=== PATIENT | male | born 1955 | race Caucasian/White ===

== ENCOUNTER → 2016-10-10 | Outpatient (CLI) | payer MEDICARE ==
[~2016-10-10] MED LIST: ACET-2902 PO; AMLO2.5T PO; ASCO-360 PO; CARV3 PO; CARV6 PO; CEFT2PIG2 IVPB; DIAZ5 PO; DSS100 PO; FOLI1 PO; FURO40 PO; HEPA500035 SQ; HYDR25TA PO; LIDOCAINE HCL 4% 50 ML SOLUTION TP ONE; LISI-662 PO; MINE454C11 TP; MULT1TAB69 PO; NAPR500T6 PO; OMEP20 PO; PANT40I IV; PERCT PO; SILV45GE TP; SODIUM HYPOCHLORITE 0.25% [HALF STRENGTH] 473 ML SOLUTION TP ONE; TRAM50TA4 PO; VITAMIN D PO; ZOSY3375FZ IV; [UNRECOGNIZED DRUG - CODE] IRRIG
[2016-10-10 14:56] VITALS: BP 130/73
== END | disposition home or self-care (01) ==
LOC: HBOWC 12:10
PROVIDERS: ATTEND Emergency Medicine
DX: I87.2 Venous insufficiency (chronic) (peripheral) (principal); L97.821 Non-pressure chronic ulcer of other part of left lower leg limited to breakdown of skin; I89.0 Lymphedema, not elsewhere classified; I10 Essential (primary) hypertension; E66.01 Morbid (severe) obesity due to excess calories; B35.1 Tinea unguium; F10.10 Alcohol abuse, uncomplicated; Z87.891 Personal history of nicotine dependence; Z86.718 Personal history of other venous thrombosis and embolism
CPT/HCPCS: 97597; 97598

== ENCOUNTER → 2016-10-24 | Outpatient (CLI) | payer MEDICARE ==
[~2016-10-24] MED LIST changes: -LIDOCAINE HCL 4% 50 ML SOLUTION TP ONE; -SODIUM HYPOCHLORITE 0.25% [HALF STRENGTH] 473 ML SOLUTION TP ONE
[2016-10-24 13:49] VITALS: BP 134/62
== END | disposition home or self-care (01) ==
LOC: HBOWC 12:30
PROVIDERS: ATTEND Emergency Medicine
DX: I87.2 Venous insufficiency (chronic) (peripheral) (principal); L97.821 Non-pressure chronic ulcer of other part of left lower leg limited to breakdown of skin; I89.0 Lymphedema, not elsewhere classified; K70.30 Alcoholic cirrhosis of liver without ascites; I10 Essential (primary) hypertension; E66.01 Morbid (severe) obesity due to excess calories; B35.1 Tinea unguium; M21.42 Flat foot [pes planus] (acquired), left foot; M21.41 Flat foot [pes planus] (acquired), right foot; Z87.891 Personal history of nicotine dependence
CPT/HCPCS: 97597; 97598

== ENCOUNTER → 2016-10-27 | Outpatient (CLI) | payer MEDICARE ==
[~2016-10-27] VITALS: Ht 185.4 cm; Wt 154.0 kg
[2016-10-27 09:58] VITALS: BP 126/69
== END | disposition home or self-care (01) ==
LOC: SRCNTR 09:45
PROVIDERS: ATTEND Hospitalist
DX: I10 Essential (primary) hypertension (principal); I89.0 Lymphedema, not elsewhere classified; E66.01 Morbid (severe) obesity due to excess calories; K70.30 Alcoholic cirrhosis of liver without ascites; L97.929 Non-pressure chronic ulcer of unspecified part of left lower leg with unspecified severity; F10.21 Alcohol dependence, in remission
CPT/HCPCS: G0463

== ENCOUNTER → 2016-11-07 | Outpatient (CLI) | payer MEDICARE ==
[~2016-11-07] MED LIST changes: -AMLO2.5T PO; -CARV6 PO; -FURO40 PO; +LIDOCAINE HCL 4% 50 ML SOLUTION TP ONE; -LISI-662 PO; -NAPR500T6 PO; -OMEP20 PO; -VITAMIN D PO
[2016-11-07 14:12] VITALS: BP 111/68
== END | disposition home or self-care (01) ==
LOC: HBOWC 12:10
PROVIDERS: ATTEND Emergency Medicine
DX: I87.2 Venous insufficiency (chronic) (peripheral) (principal); L97.821 Non-pressure chronic ulcer of other part of left lower leg limited to breakdown of skin; I10 Essential (primary) hypertension; I89.0 Lymphedema, not elsewhere classified; E66.01 Morbid (severe) obesity due to excess calories; B35.1 Tinea unguium; M21.42 Flat foot [pes planus] (acquired), left foot; M21.41 Flat foot [pes planus] (acquired), right foot; Z86.718 Personal history of other venous thrombosis and embolism; F17.210 Nicotine dependence, cigarettes, uncomplicated; F10.10 Alcohol abuse, uncomplicated
CPT/HCPCS: 97597; 97598

== ENCOUNTER → 2016-11-21 | Outpatient (CLI) | payer MEDICARE ==
[~2016-11-21] MED LIST changes: -LIDOCAINE HCL 4% 50 ML SOLUTION TP ONE
[2016-11-21 14:12] VITALS: BP 139/60
== END | disposition home or self-care (01) ==
LOC: HBOWC 13:00
PROVIDERS: ATTEND Emergency Medicine
DX: I87.2 Venous insufficiency (chronic) (peripheral) (principal); L97.821 Non-pressure chronic ulcer of other part of left lower leg limited to breakdown of skin; I89.0 Lymphedema, not elsewhere classified; I10 Essential (primary) hypertension; E66.01 Morbid (severe) obesity due to excess calories; B35.1 Tinea unguium; Z86.718 Personal history of other venous thrombosis and embolism; Z87.891 Personal history of nicotine dependence; F10.10 Alcohol abuse, uncomplicated
CPT/HCPCS: 97597; 97598

== ENCOUNTER → 2016-12-05 | Outpatient (CLI) | payer MEDICARE ==
[~2016-12-05] MED LIST changes: -ACET-2902 PO; -CARV3 PO; -CEFT2PIG2 IVPB; -DIAZ5 PO; -DSS100 PO; -HEPA500035 SQ; -MINE454C11 TP; -PANT40I IV; -PERCT PO; -SILV45GE TP; -ZOSY3375FZ IV; -[UNRECOGNIZED DRUG - CODE] IRRIG
[2016-12-05 14:03] VITALS: BP 131/70
== END | disposition home or self-care (01) ==
LOC: HBOWC 12:47
PROVIDERS: ATTEND Emergency Medicine
DX: I87.2 Venous insufficiency (chronic) (peripheral) (principal); L97.821 Non-pressure chronic ulcer of other part of left lower leg limited to breakdown of skin; I89.0 Lymphedema, not elsewhere classified; I10 Essential (primary) hypertension; E66.01 Morbid (severe) obesity due to excess calories; Z86.718 Personal history of other venous thrombosis and embolism; B35.1 Tinea unguium; M21.42 Flat foot [pes planus] (acquired), left foot; M21.41 Flat foot [pes planus] (acquired), right foot; F17.210 Nicotine dependence, cigarettes, uncomplicated; F10.10 Alcohol abuse, uncomplicated
CPT/HCPCS: 97597; 97598

== ENCOUNTER 2016-12-08 01:16 | Emergency (ER) | payer MEDICARE ==
[~2016-12-08] VITALS: Ht 185.4 cm; Wt 136.0 kg
[2016-12-08] MEDS ORDERED: TraMADol HCL 50 MG TABLET PO ONE (02:30)
[2016-12-08 03:13] VITALS: BP 154/90
[2016-12-22] MEDS ORDERED: DIAZ5 PO (09:28)
[2017-01-05] MEDS ORDERED: PERCT PO (15:06)
[2017-01-14] MEDS ORDERED: ZOSY3375FZ IV (11:00)
== END 2016-12-08 03:21 | disposition home or self-care (01) ==
LOC: EMS 01:18
DX: M54.5 Low back pain (principal); I89.0 Lymphedema, not elsewhere classified; Z88.2 Allergy status to sulfonamides; F17.290 Nicotine dependence, other tobacco product, uncomplicated
CPT/HCPCS: 99283

== ENCOUNTER → 2016-12-22 | Outpatient (CLI) | payer MEDICARE ==
[~2016-12-22] MED LIST changes: +ACET-2902 PO; +ACET-784 PO; +ASCO500 PO; +CARV3 PO; +CEFT2PIG2 IVPB; +DIAZ5 PO; +DSS100 PO; +HEPA500017 SQ; +HEPA500035 SQ; +MINE454C11 TP; +MULT-248 PO; +PANT40I IV; +PANT40TA25 PO; +PERCT PO; +SILV45GE TP; +ZOSY3375FZ IV; +[UNRECOGNIZED DRUG - CODE] IRRIG; +[UNRECOGNIZED DRUG - CODE] IV
[2016-12-22 12:58] LABS: APPEARANCE,URINE CLEAR (CLEAR); GLUCOSE, URINE (UA) NEGATIVE (NEGATIVE); KETONES,URINE 15 mg/dL (NEGATIVE); LEUKOCYTE ESTERASE ,URINE SMALL (NEGATIVE); OCCULT BLOOD,URINE TRACE (NEGATIVE); PH,URINE 6.5 (5.0-8.0); PROTEIN,URINE POS 1+ (NEGATIVE)
[2016-12-22 13:09] LABS: ADD UA MICROSCOPIC YES
[2016-12-22 13:12] LABS: RBC,URINE 0-2 /HPF (0-2); SQUAMOUS EPITHELIAL CELL,UR Few /LPF (None Seen); WBC,URINE 0-2 /HPF (0-5)
== END | disposition home or self-care (01) ==
LOC: LABPV 11:46
PROVIDERS: ATTEND Hospitalist
DX: N30.90 Cystitis, unspecified without hematuria (principal)
CPT/HCPCS: 87086

== ENCOUNTER → 2016-12-22 | Outpatient (CLI) | payer MEDICARE ==
[~2016-12-22] MED LIST changes: -ACET-2902 PO; -ACET-784 PO; -ASCO500 PO; -CARV3 PO; -CEFT2PIG2 IVPB; -DSS100 PO; -HEPA500017 SQ; -HEPA500035 SQ; +LIDOCAINE HCL 4% 50 ML SOLUTION TP ONE; -MINE454C11 TP; -MULT-248 PO; -PANT40I IV; -PANT40TA25 PO; -PERCT PO; -SILV45GE TP; -ZOSY3375FZ IV; -[UNRECOGNIZED DRUG - CODE] IRRIG; -[UNRECOGNIZED DRUG - CODE] IV
[2016-12-22 14:01] VITALS: BP 132/73
== END | disposition home or self-care (01) ==
LOC: HBOWC 11:55
PROVIDERS: ATTEND Emergency Medicine
DX: I87.2 Venous insufficiency (chronic) (peripheral) (principal); L97.821 Non-pressure chronic ulcer of other part of left lower leg limited to breakdown of skin; I89.0 Lymphedema, not elsewhere classified; I10 Essential (primary) hypertension; E66.01 Morbid (severe) obesity due to excess calories; B35.1 Tinea unguium; M21.42 Flat foot [pes planus] (acquired), left foot; M21.41 Flat foot [pes planus] (acquired), right foot; Z86.718 Personal history of other venous thrombosis and embolism; Z87.891 Personal history of nicotine dependence; F10.10 Alcohol abuse, uncomplicated
CPT/HCPCS: 97597; 97598

== ENCOUNTER → 2016-12-22 | Outpatient (CLI) | payer MEDICARE ==
[~2016-12-22] VITALS: Ht 185.4 cm; Wt 150.0 kg
[~2016-12-22] MED LIST changes: +ACET-2902 PO; +ACET-784 PO; +ASCO500 PO; +CARV3 PO; +CEFT2PIG2 IVPB; +DSS100 PO; +HEPA500017 SQ; +HEPA500035 SQ; -LIDOCAINE HCL 4% 50 ML SOLUTION TP ONE; +MINE454C11 TP; +MULT-248 PO; +PANT40I IV; +PANT40TA25 PO; +PERCT PO; +SILV45GE TP; +ZOSY3375FZ IV; +[UNRECOGNIZED DRUG - CODE] IRRIG; +[UNRECOGNIZED DRUG - CODE] IV
[2016-12-22 09:20] VITALS: BP 142/75
== END | disposition home or self-care (01) ==
LOC: SRCNTR 09:19
PROVIDERS: ATTEND Hospitalist
DX: I87.2 Venous insufficiency (chronic) (peripheral) (principal); L97.821 Non-pressure chronic ulcer of other part of left lower leg limited to breakdown of skin; B35.1 Tinea unguium; M54.5 Low back pain; E66.01 Morbid (severe) obesity due to excess calories; K74.60 Unspecified cirrhosis of liver; I89.0 Lymphedema, not elsewhere classified; Z87.891 Personal history of nicotine dependence; Z86.59 Personal history of other mental and behavioral disorders
CPT/HCPCS: G0463

== ENCOUNTER 2016-12-26 16:46 | Inpatient (IN) | payer MEDICARE ==
[~2016-12-26] VITALS: Ht 185.4 cm; Wt 153.5 kg
[~2016-12-26 16:46] MED LIST changes: -ACET-2902 PO; -ACET-784 PO; -ASCO500 PO; -CARV3 PO; -CEFT2PIG2 IVPB; -DIAZ5 PO; -DSS100 PO; -HEPA500017 SQ; -HEPA500035 SQ; -HYDR25TA PO; -MINE454C11 TP; -MULT-248 PO; -PANT40I IV; -PANT40TA25 PO; -PERCT PO; -SILV45GE TP; -ZOSY3375FZ IV; -[UNRECOGNIZED DRUG - CODE] IRRIG; -[UNRECOGNIZED DRUG - CODE] IV
[2016-12-26 20:15] LABS: HEMATOCRIT 35.5 % (41-53); HEMOGLOBIN 11.5 g/dL (13.5-17.5); MEAN CORPUSCULAR HEMOGLOBIN 28.6 pg (26.0-34.0); MEAN CORPUSCULAR HGB CONC 32.5 G/dL (31.0-37.0); MEAN CORPUSCULAR VOLUME 88 fL (80-100); PLATELET COUNT (AUTO) 135 K/uL (150-450); RED BLOOD CELL COUNT(AUTO) 4.04 MIL/uL (4.50-5.90); RED CELL DISTRIBUTION WIDTH 19.8 % (11.5-14.5)
[2016-12-26 20:25] LABS: ANION GAP 9 mmol/L (8-16); CALCIUM, TOTAL 8.6 mg/dL (8.8-10.5); CARBON DIOXIDE 28 mmol/L (22-29); CHLORIDE 98 mmol/L (98-107); CREATININE 0.86 mg/dL (0.60-1.30); GLOMERULAR FILTR. RATE CALC > 60 mL/min (>60); POTASSIUM 4.2 mmol/L (3.5-5.1); SODIUM SERUM 135 mmol/L (136-145); UREA NITROGEN, BLOOD 13 mg/dL (7-18)
[2016-12-26] MEDS ORDERED: DIGOXIN 250 MCG/ML 2 ML AMP IVP ONE (20:30)
[2016-12-26 20:32] LABS: ALANINE AMINOTRANSFERASE 23 U/L (12-78); ALBUMIN 2.6 g/dL (3.4-5.0); ASPARTATE AMINOTRANSFERASE 93 U/L (15-37); BILIRUBIN,TOTAL 2.4 mg/dL (0.1-1.0); TOTAL PROTEIN, SERUM 8.8 g/dL (6.4-8.2)
[2016-12-26 20:50] LABS: BAND NEUTROPHILS % (MANUAL) 32 % (1-5); BASOPHILS % (MANUAL) 1 % (0-2); EOSINOPHILS % (MANUAL) 2 % (1-6); LYMPHOCYTES % (MANUAL) 8 % (22-44); TOTAL CELLS COUNTED 100
[2016-12-26 20:51] LABS: RBC MORPHOLOGY COMMENT ABNORMAL RBC MORPH
[2016-12-26 20:56] LABS: TROPONIN I 0.02 ng/mL (0.00-0.05)
[2016-12-26 21:10] LABS: ADD UA MICROSCOPIC YES; APPEARANCE,URINE CLEAR (CLEAR); GLUCOSE, URINE (UA) NEGATIVE (NEGATIVE); KETONES,URINE 15 mg/dL (NEGATIVE); LEUKOCYTE ESTERASE ,URINE SMALL (NEGATIVE); OCCULT BLOOD,URINE NEGATIVE (NEGATIVE); PROTEIN,URINE POS 1+ (NEGATIVE)
[2016-12-26] MEDS ORDERED: DILTIAZEM HCL 5 MG/ML 5 ML VIAL IVP ONE (21:30)
[2016-12-26 22:15] LABS: WBC,URINE 0-2 /HPF (0-5)
[2016-12-26] MEDS ORDERED: CefTRIAXone 1 GM/DEXTROSE 50 ML IV ONE (22:15)
[2016-12-26 22:16] LABS: SQUAMOUS EPITHELIAL CELL,UR Few /LPF (None Seen)
[2016-12-26] MEDS ORDERED: SODIUM CHLORIDE 0.9% 250 ML IV ONE (23:39)
[2016-12-26] MEDS ORDERED: OxyCODONE HCL/ACETAMINOPHEN 5-325 MG TABLET PO PRN ×2 (23:45)
[2016-12-26 23:48] VITALS: BP 133/92
[2016-12-27] MEDS ORDERED: TraMADol HCL 50 MG TABLET PO PRN (00:15)
[2016-12-27] MEDS: DOCUSATE SODIUM 100 MG CAPSULE PO SCH ×3 (00:30→20:15)
[2016-12-27] MEDS ORDERED: ACETAMINOPHEN 325 MG TABLET PO PRN (00:30)
[2016-12-27] MEDS ORDERED: ONDANSETRON HCL 4 MG/2 ML VIAL IVP PRN (00:30)
[2016-12-27] MEDS ORDERED: MAGNESIUM HYDROXIDE SUSPENSION 30 ML UDCUP PO PRN (00:30)
[2016-12-27] MEDS ORDERED: 0.9% SODIUM CHLORIDE 10 ML SYRINGE IVP PRN (00:30)
[2016-12-27] MEDS: ASCORBIC ACID 500 MG TABLET PO SCH ×3 (01:13→20:14)
[2016-12-27 05:59] VITALS: BP 123/77
[2016-12-27 07:23] VITALS: BP 134/86
[2016-12-27] MEDS: HEPARIN SODIUM,PORCINE 5,000 UNITS/ML VIAL SQ SCH ×3 (08:57→20:14)
[2016-12-27] MEDS: FOLIC ACID 1 MG TABLET PO SCH (08:57)
[2016-12-27] MEDS: PANTOPRAZOLE SODIUM 40 MG/VIAL IVP SCH (08:57)
[2016-12-27] MEDS: MULTIVITAMINS WITH MINERALS, THERAPEUTIC TABLET PO SCH (08:57)
[2016-12-27 11:15] VITALS: BP 127/69
[2016-12-27] MEDS: OxyCODONE HCL/ACETAMINOPHEN 5-325 MG TABLET PO PRN ×2 (11:58→20:15)
[2016-12-27 14:47] VITALS: BP 121/82
[2016-12-27] MEDS: CARVEDILOL 3.125 MG TABLET PO SCH ×2 (16:29→20:14)
[2016-12-27 20:13] VITALS: BP 104/75
[2016-12-27] MEDS ORDERED: CARVEDILOL 3.125 MG TABLET PO SCH (21:00)
[2016-12-28 00:06] VITALS: BP 125/80
[2016-12-28] MEDS: OxyCODONE HCL/ACETAMINOPHEN 5-325 MG TABLET PO PRN ×3 (00:16→07:48)
[2016-12-28 04:39] VITALS: BP 100/64
[2016-12-28 07:09] VITALS: BP 115/64
[2016-12-28 07:15] LABS: BASOPHILS % (AUTO) 0.4 % (0.0-2.0); EOSINOPHILS % (AUTO) 3.6 % (1.0-6.0); HEMOGLOBIN 11.2 g/dL (13.5-17.5); LYMPHOCYTES # (AUTO) 0.6 K/uL (1.0-4.8); LYMPHOCYTES % (AUTO) 7.1 % (22.0-44.0); MEAN CORPUSCULAR HEMOGLOBIN 28.5 pg (26.0-34.0); MEAN CORPUSCULAR HGB CONC 31.9 G/dL (31.0-37.0); MEAN CORPUSCULAR VOLUME 89 fL (80-100); MONOCYTES # (AUTO) 0.5 K/uL (0.1-1.0); MONOCYTES % (AUTO) 5.3 % (2.0-9.0); NEUTROPHILS # (AUTO) 7.5 K/uL (1.8-7.7); NEUTROPHILS % (AUTO) 83.6 % (40.0-70.0); PLATELET COUNT (AUTO) 143 K/uL (150-450); RED BLOOD CELL COUNT(AUTO) 3.91 MIL/uL (4.50-5.90); RED CELL DISTRIBUTION WIDTH 19.7 % (11.5-14.5); WHITE BLOOD COUNT (AUTO) 8.9 K/uL (4.5-11.0)
[2016-12-28 07:33] LABS: ANION GAP 7 mmol/L (8-16); CARBON DIOXIDE 29 mmol/L (22-29); CHLORIDE 98 mmol/L (98-107); GLOMERULAR FILTR. RATE CALC > 60 mL/min (>60); POTASSIUM 3.8 mmol/L (3.5-5.1); SODIUM SERUM 134 mmol/L (136-145); UREA NITROGEN, BLOOD 13 mg/dL (7-18)
[2016-12-28] MEDS: HEPARIN SODIUM,PORCINE 5,000 UNITS/ML VIAL SQ SCH ×3 (08:42→20:40)
[2016-12-28] MEDS: ASCORBIC ACID 500 MG TABLET PO SCH ×2 (08:42→20:41)
[2016-12-28] MEDS: PANTOPRAZOLE SODIUM 40 MG/VIAL IVP SCH (08:42)
[2016-12-28] MEDS: MULTIVITAMINS WITH MINERALS, THERAPEUTIC TABLET PO SCH (08:42)
[2016-12-28] MEDS: FOLIC ACID 1 MG TABLET PO SCH (08:42)
[2016-12-28] MEDS: CARVEDILOL 3.125 MG TABLET PO SCH ×2 (08:42→20:51)
[2016-12-28] MEDS: DOCUSATE SODIUM 100 MG CAPSULE PO SCH ×2 (08:43→20:50)
[2016-12-28 10:29] LABS: RBC MORPHOLOGY COMMENT ABNORMAL RBC MORPH
[2016-12-28 11:40] VITALS: BP 102/56
[2016-12-28 15:24] VITALS: BP 111/69
[2016-12-28 20:20] VITALS: BP 119/77
[2016-12-29] VITALS (7 sets, daily range): BP systolic 107–139; BP diastolic 66–73
[2016-12-29] MEDS ORDERED: SODIUM CL IRRIG SOLN BOTTLE 250 ML IRRIG ONE (04:47)
[2016-12-29] MEDS: PANTOPRAZOLE SODIUM 40 MG/VIAL IVP SCH (08:23)
[2016-12-29] MEDS: DOCUSATE SODIUM 100 MG CAPSULE PO SCH ×2 (08:23→20:04)
[2016-12-29] MEDS: MULTIVITAMINS WITH MINERALS, THERAPEUTIC TABLET PO SCH (08:24)
[2016-12-29] MEDS: ASCORBIC ACID 500 MG TABLET PO SCH ×2 (08:24→20:00)
[2016-12-29] MEDS: FOLIC ACID 1 MG TABLET PO SCH (08:24)
[2016-12-29] MEDS: CARVEDILOL 3.125 MG TABLET PO SCH ×2 (08:24→20:00)
[2016-12-29] MEDS: HEPARIN SODIUM,PORCINE 5,000 UNITS/ML VIAL SQ SCH ×3 (08:24→20:00)
[2016-12-29] MEDS: OxyCODONE HCL/ACETAMINOPHEN 5-325 MG TABLET PO PRN ×2 (08:59→20:01)
[2016-12-29] MEDS: PIPERACILLIN/TAZO 3.375 GM/D5W 50 ML IV SCH ×2 (16:19→21:17)
[2016-12-30 02:13] VITALS: BP 101/59
[2016-12-30] MEDS: OxyCODONE HCL/ACETAMINOPHEN 5-325 MG TABLET PO PRN ×3 (02:14→20:07)
[2016-12-30] MEDS: PIPERACILLIN/TAZO 3.375 GM/D5W 50 ML IV SCH ×4 (03:51→21:53)
[2016-12-30 04:23] VITALS: BP 101/52
[2016-12-30 07:40] VITALS: BP 117/61
[2016-12-30] MEDS: SILVER 45 ML GEL TP SCH (08:43)
[2016-12-30] MEDS: CARVEDILOL 3.125 MG TABLET PO SCH ×2 (08:43→20:07)
[2016-12-30] MEDS: MULTIVITAMINS WITH MINERALS, THERAPEUTIC TABLET PO SCH (08:43)
[2016-12-30] MEDS: MINERAL OIL/PETROLATUM 120 GM CREAM TP SCH (08:43)
[2016-12-30] MEDS: ASCORBIC ACID 500 MG TABLET PO SCH ×2 (08:43→20:07)
[2016-12-30] MEDS: FOLIC ACID 1 MG TABLET PO SCH (08:43)
[2016-12-30] MEDS: PANTOPRAZOLE SODIUM 40 MG/VIAL IVP SCH (08:44)
[2016-12-30] MEDS: DOCUSATE SODIUM 100 MG CAPSULE PO SCH ×2 (08:44→20:09)
[2016-12-30] MEDS: HEPARIN SODIUM,PORCINE 5,000 UNITS/ML VIAL SQ SCH ×3 (08:45→20:07)
[2016-12-30 11:37] VITALS: BP 95/59
[2016-12-30] MEDS: ACETIC ACID 0.25% 1000 ML IRRIGATION SOLUTION IRRIG SCH (13:20)
[2016-12-30 17:55] VITALS: BP 109/62
[2016-12-30 20:02] VITALS: BP 106/60
[2016-12-31] VITALS (7 sets, daily range): BP systolic 101–136; BP diastolic 59–72
[2016-12-31] MEDS ORDERED: SODIUM CHLORIDE 0.9% 500 ML IV ONE (04:41)
[2016-12-31] MEDS: PIPERACILLIN/TAZO 3.375 GM/D5W 50 ML IV SCH ×4 (04:46→21:31)
[2016-12-31] MEDS: ASCORBIC ACID 500 MG TABLET PO SCH ×2 (09:28→20:02)
[2016-12-31] MEDS: MULTIVITAMINS WITH MINERALS, THERAPEUTIC TABLET PO SCH (09:28)
[2016-12-31] MEDS: HEPARIN SODIUM,PORCINE 5,000 UNITS/ML VIAL SQ SCH ×3 (09:28→20:02)
[2016-12-31] MEDS: OxyCODONE HCL/ACETAMINOPHEN 5-325 MG TABLET PO PRN ×2 (09:28→20:02)
[2016-12-31] MEDS: DOCUSATE SODIUM 100 MG CAPSULE PO SCH ×2 (09:29→20:02)
[2016-12-31] MEDS: FOLIC ACID 1 MG TABLET PO SCH (09:29)
[2016-12-31] MEDS: MINERAL OIL/PETROLATUM 120 GM CREAM TP SCH (09:29)
[2016-12-31] MEDS: SILVER 45 ML GEL TP SCH (09:29)
[2016-12-31] MEDS: CARVEDILOL 3.125 MG TABLET PO SCH ×2 (09:29→20:02)
[2016-12-31] MEDS: ACETIC ACID 0.25% 1000 ML IRRIGATION SOLUTION IRRIG SCH (09:29)
[2016-12-31] MEDS: PANTOPRAZOLE SODIUM 40 MG/VIAL IVP SCH (09:29)
[2017-01-01] MEDS: PIPERACILLIN/TAZO 3.375 GM/D5W 50 ML IV SCH (03:53)
[2017-01-01 05:03] VITALS: BP 103/68
[2017-01-01] MEDS: OxyCODONE HCL/ACETAMINOPHEN 5-325 MG TABLET PO PRN ×2 (05:06→14:07)
[2017-01-01] MEDS: CARVEDILOL 3.125 MG TABLET PO SCH (09:00)
[2017-01-01] MEDS ORDERED: CefTRIAXone SODIUM 2 GM in DEXTROSE 5%-WATER 50 ML IV SCH (09:00)
[2017-01-01] MEDS: SILVER 45 ML GEL TP SCH (10:15)
[2017-01-01] MEDS: ACETIC ACID 0.25% 1000 ML IRRIGATION SOLUTION IRRIG SCH (10:15)
[2017-01-01] MEDS: MINERAL OIL/PETROLATUM 120 GM CREAM TP SCH (10:15)
[2017-01-01 10:16] VITALS: BP 99/56
[2017-01-01] MEDS: MULTIVITAMINS WITH MINERALS, THERAPEUTIC TABLET PO SCH (10:16)
[2017-01-01] MEDS: FOLIC ACID 1 MG TABLET PO SCH (10:17)
[2017-01-01] MEDS: ASCORBIC ACID 500 MG TABLET PO SCH (10:17)
[2017-01-01] MEDS: DOCUSATE SODIUM 100 MG CAPSULE PO SCH (10:17)
[2017-01-01] MEDS: HEPARIN SODIUM,PORCINE 5,000 UNITS/ML VIAL SQ SCH ×2 (10:18→16:31)
[2017-01-01] MEDS: PANTOPRAZOLE SODIUM 40 MG/VIAL IVP SCH (10:18)
[2017-01-01 11:28] VITALS: BP 100/59
[2017-01-01 15:07] VITALS: BP 103/61
[2017-01-01] MEDS ORDERED: [UNRECOGNIZED DRUG - CODE] IRRIG (18:23)
[2017-01-01] MEDS ORDERED: CARV3 PO (18:23)
[2017-01-01] MEDS ORDERED: CEFT2PIG2 IVPB (18:26)
[2017-01-01] MEDS ORDERED: DSS100 PO (18:30)
[2017-01-01] MEDS ORDERED: HEPA500035 SQ (19:01)
[2017-01-01] MEDS ORDERED: MINE454C11 TP (19:02)
[2017-01-01] MEDS ORDERED: PANT40I IV (19:03)
[2017-01-01] MEDS ORDERED: SILV45GE TP (19:05)
[2017-01-01] MEDS ORDERED: ACET-2902 PO (19:07)
[2017-01-01 19:27] VITALS: BP 96/62
[2017-01-01 20:40] VITALS: BP 133/80
[2017-01-05] MEDS ORDERED: PERCT PO (15:06)
[2017-01-14] MEDS ORDERED: ZOSY3375FZ IV (11:00)
[2017-03-12] MEDS ORDERED: CARV3 PO (14:33)
[2017-03-12] MEDS ORDERED: MULT-248 PO (14:33)
[2017-03-12] MEDS ORDERED: FOLI1 PO (14:33)
[2017-03-12] MEDS ORDERED: PERCT PO (14:33)
[2017-03-12] MEDS ORDERED: ACET-784 PO (14:33)
[2017-03-12] MEDS ORDERED: TRAM50TA4 PO (14:33)
[2017-03-12] MEDS ORDERED: ASCO500 PO (14:33)
[2017-03-12] MEDS ORDERED: HEPA500017 SQ (14:33)
[2017-03-12] MEDS ORDERED: PANT40TA25 PO (14:33)
[2017-03-12] MEDS ORDERED: [UNRECOGNIZED DRUG - CODE] IV (16:01)
== END 2017-01-01 20:45 | DRG 871 ==
LOC: EMS 16:51 → 5S 20:00
PROVIDERS: ADMIT Internal Medicine; ATTEND Internal Medicine
DX: A41.9 Sepsis, unspecified organism (principal); E43 Unspecified severe protein-calorie malnutrition; L03.116 Cellulitis of left lower limb; L97.929 Non-pressure chronic ulcer of unspecified part of left lower leg with unspecified severity; I48.91 Unspecified atrial fibrillation; K70.30 Alcoholic cirrhosis of liver without ascites; S42.001A Fracture of unspecified part of right clavicle, initial encounter for closed fracture; D64.9 Anemia, unspecified; R29.6 Repeated falls; I89.0 Lymphedema, not elsewhere classified; I87.2 Venous insufficiency (chronic) (peripheral); I73.9 Peripheral vascular disease, unspecified; F17.210 Nicotine dependence, cigarettes, uncomplicated; Z91.81 History of falling; Z98.890 Other specified postprocedural states; Z88.2 Allergy status to sulfonamides; Z79.1 Long term (current) use of non-steroidal anti-inflammatories (NSAID); Z79.899 Other long term (current) drug therapy
CPT/HCPCS: 76705; 87070; 87205; 93005; 93306; 93925; 93970; 96374; 96375; 97116; 97162; 97530; 99285; C9113; G0480; J0696; J1160; J1644; J2543; J3490; J7040; J7050; J7060

== ENCOUNTER → 2017-01-05 | Outpatient (CLI) | payer MEDICARE ==
[~2017-01-05] MED LIST changes: +ACET-2902 PO; +ACET-784 PO; +ASCO500 PO; +CARV3 PO; +CEFT2PIG2 IVPB; +DSS100 PO; +HEPA500017 SQ; +HEPA500035 SQ; +MINE454C11 TP; +MULT-248 PO; +PANT40I IV; +PANT40TA25 PO; +PERCT PO; +SILV45GE TP; +ZOSY3375FZ IV; +[UNRECOGNIZED DRUG - CODE] IRRIG; +[UNRECOGNIZED DRUG - CODE] IV
[2017-01-05 13:57] VITALS: BP 130/68
== END | disposition home or self-care (01) ==
LOC: HBOWC 12:37
PROVIDERS: ATTEND Emergency Medicine
DX: I87.2 Venous insufficiency (chronic) (peripheral) (principal); L97.821 Non-pressure chronic ulcer of other part of left lower leg limited to breakdown of skin; I10 Essential (primary) hypertension; I89.0 Lymphedema, not elsewhere classified; E66.01 Morbid (severe) obesity due to excess calories; M21.42 Flat foot [pes planus] (acquired), left foot; M21.41 Flat foot [pes planus] (acquired), right foot; Z86.718 Personal history of other venous thrombosis and embolism; B35.1 Tinea unguium; F17.210 Nicotine dependence, cigarettes, uncomplicated; F10.10 Alcohol abuse, uncomplicated
CPT/HCPCS: 97597; 97598

== ENCOUNTER → 2017-01-12 | Outpatient (CLI) | payer MEDICARE ==
[~2017-01-12] MED LIST changes: -ACET-2902 PO; -DSS100 PO; +LIDOCAINE HCL 4% 50 ML SOLUTION TP ONE; -PANT40I IV; -SILV45GE TP
[2017-01-12 14:05] VITALS: BP 120/55
== END | disposition home or self-care (01) ==
LOC: HBOWC 13:31
PROVIDERS: ATTEND Emergency Medicine
DX: I87.2 Venous insufficiency (chronic) (peripheral) (principal); L97.822 Non-pressure chronic ulcer of other part of left lower leg with fat layer exposed; I89.0 Lymphedema, not elsewhere classified; I10 Essential (primary) hypertension; M21.42 Flat foot [pes planus] (acquired), left foot; M21.41 Flat foot [pes planus] (acquired), right foot; E66.01 Morbid (severe) obesity due to excess calories; Z86.718 Personal history of other venous thrombosis and embolism; B35.1 Tinea unguium; I48.91 Unspecified atrial fibrillation; E43 Unspecified severe protein-calorie malnutrition; F17.210 Nicotine dependence, cigarettes, uncomplicated
CPT/HCPCS: 87070; 87205; 97597; 97598

== ENCOUNTER → 2017-01-27 | Outpatient (CLI) | payer MEDICARE ==
[~2017-01-27] MED LIST changes: -ACET-784 PO; -ASCO500 PO; -CEFT2PIG2 IVPB; -HEPA500017 SQ; -LIDOCAINE HCL 4% 50 ML SOLUTION TP ONE; -MULT-248 PO; -PANT40TA25 PO; -[UNRECOGNIZED DRUG - CODE] IV
[2017-01-27 14:51] VITALS: BP 111/64
== END | disposition home or self-care (01) ==
LOC: HBOWC 12:57
PROVIDERS: ATTEND Emergency Medicine
DX: I87.2 Venous insufficiency (chronic) (peripheral) (principal); L97.822 Non-pressure chronic ulcer of other part of left lower leg with fat layer exposed; I89.0 Lymphedema, not elsewhere classified; E66.01 Morbid (severe) obesity due to excess calories; B35.1 Tinea unguium; I48.91 Unspecified atrial fibrillation; E43 Unspecified severe protein-calorie malnutrition; F10.10 Alcohol abuse, uncomplicated; K70.30 Alcoholic cirrhosis of liver without ascites; I73.9 Peripheral vascular disease, unspecified; I10 Essential (primary) hypertension; F17.210 Nicotine dependence, cigarettes, uncomplicated; Z86.718 Personal history of other venous thrombosis and embolism
CPT/HCPCS: 87070; 87205; 97597; 97598

== ENCOUNTER → 2017-02-12 | Outpatient (CLI) | payer MEDICARE ==
[~2017-02-12] MED LIST changes: +LIDOCAINE HCL 4% 50 ML SOLUTION TP ONE
[2017-02-12 13:57] VITALS: BP 117/52
== END | disposition home or self-care (01) ==
LOC: HBOWC 13:26
PROVIDERS: ATTEND Emergency Medicine
DX: I87.2 Venous insufficiency (chronic) (peripheral) (principal); L97.822 Non-pressure chronic ulcer of other part of left lower leg with fat layer exposed; I89.0 Lymphedema, not elsewhere classified; E66.01 Morbid (severe) obesity due to excess calories; E43 Unspecified severe protein-calorie malnutrition; I10 Essential (primary) hypertension; I73.9 Peripheral vascular disease, unspecified; Z86.718 Personal history of other venous thrombosis and embolism; F17.210 Nicotine dependence, cigarettes, uncomplicated; F10.10 Alcohol abuse, uncomplicated
CPT/HCPCS: 87070; 87205; 97597; 97598

== ENCOUNTER 2017-02-26 16:52 | Emergency (ER) | payer MEDICARE ==
[~2017-02-26] VITALS: Ht 185.4 cm; Wt 109.0 kg
[~2017-02-26 16:52] MED LIST changes: -LIDOCAINE HCL 4% 50 ML SOLUTION TP ONE
[2017-02-26] MEDS ORDERED: BACITRACIN 0.9 GM PACKET OINTMENT TP ONE (18:30)
[2017-02-26 19:06] LABS: ANION GAP 10 mmol/L (8-16); CALCIUM, TOTAL 8.7 mg/dL (8.8-10.5); CARBON DIOXIDE 24 mmol/L (22-29); CHLORIDE 105 mmol/L (98-107); CREATININE 0.79 mg/dL (0.60-1.30); GLOMERULAR FILTR. RATE CALC > 60 mL/min (>60); POTASSIUM 4.2 mmol/L (3.5-5.1); SODIUM SERUM 139 mmol/L (136-145); UREA NITROGEN, BLOOD 9 mg/dL (7-18)
[2017-02-26 19:11] LABS: ALANINE AMINOTRANSFERASE 17 U/L (12-78); ALBUMIN 2.5 g/dL (3.4-5.0); ASPARTATE AMINOTRANSFERASE 46 U/L (15-37); BILIRUBIN,TOTAL 0.9 mg/dL (0.1-1.0); TOTAL PROTEIN, SERUM 8.6 g/dL (6.4-8.2)
[2017-02-26 20:23] LABS: BASOPHILS % (AUTO) 0.7 % (0.0-2.0); HEMATOCRIT 31.9 % (41-53); HEMOGLOBIN 10.8 g/dL (13.5-17.5); LYMPHOCYTES # (AUTO) 0.9 K/uL (1.0-4.8); LYMPHOCYTES % (AUTO) 14.6 % (22.0-44.0); MEAN CORPUSCULAR HEMOGLOBIN 30.2 pg (26.0-34.0); MEAN CORPUSCULAR HGB CONC 33.9 G/dL (31.0-37.0); MEAN CORPUSCULAR VOLUME 89 fL (80-100); MONOCYTES # (AUTO) 0.5 K/uL (0.1-1.0); MONOCYTES % (AUTO) 7.9 % (2.0-9.0); NEUTROPHILS # (AUTO) 4.5 K/uL (1.8-7.7); NEUTROPHILS % (AUTO) 75.8 % (40.0-70.0); PLATELET COUNT (AUTO) 187 K/uL (150-450); RED BLOOD CELL COUNT(AUTO) 3.58 MIL/uL (4.50-5.90); RED CELL DISTRIBUTION WIDTH 16.7 % (11.5-14.5); WHITE BLOOD COUNT (AUTO) 5.9 K/uL (4.5-11.0)
[2017-02-26 21:19] VITALS: BP 130/76
== END 2017-02-26 21:34 | disposition home or self-care (01) ==
LOC: EMS 16:54
DX: S22.32XA Fracture of one rib, left side, initial encounter for closed fracture (principal); S01.81XA Laceration without foreign body of other part of head, initial encounter; I89.0 Lymphedema, not elsewhere classified; F10.129 Alcohol abuse with intoxication, unspecified; Y90.6 Blood alcohol level of 120-199 mg/100 ml; Z88.1 Allergy status to other antibiotic agents; W18.39XA Other fall on same level, initial encounter; Y93.89 Activity, other specified; Y92.89 Other specified places as the place of occurrence of the external cause; Y99.8 Other external cause status
CPT/HCPCS: 12013; 36415; 70450; 71101; 80053; 82140; 85025; 99285; G0480

== ENCOUNTER → 2017-02-26 | Outpatient (CLI) | payer MEDICARE ==
[2017-02-26 14:31] VITALS: BP 105/50
== END | disposition home or self-care (01) ==
LOC: HBOWC 13:36
PROVIDERS: ATTEND Emergency Medicine
DX: I87.2 Venous insufficiency (chronic) (peripheral) (principal); L97.821 Non-pressure chronic ulcer of other part of left lower leg limited to breakdown of skin; I89.0 Lymphedema, not elsewhere classified; I10 Essential (primary) hypertension; E66.01 Morbid (severe) obesity due to excess calories; I48.91 Unspecified atrial fibrillation; Z86.718 Personal history of other venous thrombosis and embolism; F17.210 Nicotine dependence, cigarettes, uncomplicated; F10.10 Alcohol abuse, uncomplicated
CPT/HCPCS: 11721; 97597; 97598

== ENCOUNTER → 2017-03-12 | Outpatient (CLI) | payer MEDICARE ==
[~2017-03-12] MED LIST changes: +ACET-784 PO; -ASCO-360 PO; +ASCO500 PO; +HEPA500017 SQ; -HEPA500035 SQ; +MULT-248 PO; -MULT1TAB69 PO; +PANT40TA25 PO; -ZOSY3375FZ IV; -[UNRECOGNIZED DRUG - CODE] IRRIG; +[UNRECOGNIZED DRUG - CODE] IV
[2017-03-12 14:09] VITALS: BP 102/50
== END | disposition home or self-care (01) ==
LOC: HBOWC 13:30
PROVIDERS: ATTEND Emergency Medicine
DX: I87.2 Venous insufficiency (chronic) (peripheral) (principal); L97.822 Non-pressure chronic ulcer of other part of left lower leg with fat layer exposed; I89.0 Lymphedema, not elsewhere classified; E66.01 Morbid (severe) obesity due to excess calories; F17.210 Nicotine dependence, cigarettes, uncomplicated; I48.91 Unspecified atrial fibrillation; I73.9 Peripheral vascular disease, unspecified; E43 Unspecified severe protein-calorie malnutrition; B35.1 Tinea unguium; I10 Essential (primary) hypertension; Z86.718 Personal history of other venous thrombosis and embolism; Z72.89 Other problems related to lifestyle
CPT/HCPCS: 97597; 97598

== ENCOUNTER → 2017-03-26 | Outpatient (CLI) | payer MEDICARE ==
[~2017-03-26] MED LIST changes: +LIDOCAINE HCL 2%/EPI 1:200,000/PF 10 ML VIAL INJ ONE; +LIDOCAINE HCL 4% 50 ML SOLUTION TP ONE
[2017-03-26 14:21] VITALS: BP 126/63
== END | disposition home or self-care (01) ==
LOC: HBOWC 13:26
PROVIDERS: ATTEND Emergency Medicine Undersea and Hyperbaric Medicine
DX: I87.2 Venous insufficiency (chronic) (peripheral) (principal); L97.822 Non-pressure chronic ulcer of other part of left lower leg with fat layer exposed; I89.0 Lymphedema, not elsewhere classified; I10 Essential (primary) hypertension; E66.01 Morbid (severe) obesity due to excess calories; I48.91 Unspecified atrial fibrillation; F10.129 Alcohol abuse with intoxication, unspecified; B35.1 Tinea unguium; Z72.89 Other problems related to lifestyle; F17.210 Nicotine dependence, cigarettes, uncomplicated; Z86.718 Personal history of other venous thrombosis and embolism; Z88.1 Allergy status to other antibiotic agents; M21.42 Flat foot [pes planus] (acquired), left foot; M21.41 Flat foot [pes planus] (acquired), right foot
CPT/HCPCS: 97597; 97598; J3490

== ENCOUNTER → 2017-06-08 | Outpatient (CLI) | payer MEDICARE ==
[~2017-06-08] VITALS: Ht 185.4 cm; Wt 131.6 kg
[~2017-06-08] MED LIST changes: +BENZ0.5T6 PO; +DSS100 PO; +FLUPH2.5I IM; -HEPA500017 SQ; -LIDOCAINE HCL 2%/EPI 1:200,000/PF 10 ML VIAL INJ ONE; -LIDOCAINE HCL 4% 50 ML SOLUTION TP ONE; -PANT40TA25 PO; -[UNRECOGNIZED DRUG - CODE] IV
[2017-06-08 11:45] VITALS: BP 120/63
== END | disposition home or self-care (01) ==
LOC: SRCNTR 11:11
PROVIDERS: ATTEND Hospitalist
DX: I10 Essential (primary) hypertension (principal); E78.5 Hyperlipidemia, unspecified; I89.0 Lymphedema, not elsewhere classified; I87.2 Venous insufficiency (chronic) (peripheral); I48.91 Unspecified atrial fibrillation; E66.01 Morbid (severe) obesity due to excess calories; K74.60 Unspecified cirrhosis of liver
CPT/HCPCS: G0463

== ENCOUNTER → 2017-12-10 | Outpatient (CLI) | payer MEDICARE ==
[~2017-12-10] VITALS: Ht 182.9 cm; Wt 141.0 kg
[~2017-12-10] MED LIST changes: -ACET-784 PO; +ASPI81 PO; +BENZ0.5T44 PO; -BENZ0.5T6 PO; -FLUPH2.5I IM; +FURO40 PO; +METO25 PO; -MINE454C11 TP; +SPIR50 PO
[2017-12-10 08:44] VITALS: BP 147/76
== END | disposition home or self-care (01) ==
LOC: SRCNTR 08:31
PROVIDERS: ATTEND Hospitalist
DX: I87.8 Other specified disorders of veins (principal); E66.9 Obesity, unspecified; K74.60 Unspecified cirrhosis of liver; D64.9 Anemia, unspecified; R60.1 Generalized edema; F10.10 Alcohol abuse, uncomplicated
CPT/HCPCS: G0463

== ENCOUNTER → 2018-01-05 | Outpatient (CLI) | payer MEDICARE ==
[~2018-01-05] MED LIST changes: -ASPI81 PO; -FURO40 PO; -METO25 PO; -PERCT PO; -SPIR50 PO
[2018-01-05 12:06] LABS: BASOPHILS % (AUTO) 0.6 % (0.0-2.0); EOSINOPHILS % (AUTO) 1.9 % (1.0-6.0); HEMOGLOBIN 11.9 g/dL (13.5-17.5); LYMPHOCYTES # (AUTO) 0.6 K/uL (1.0-4.8); LYMPHOCYTES % (AUTO) 6.8 % (22.0-44.0); MEAN CORPUSCULAR HEMOGLOBIN 24.5 pg (26.0-34.0); MEAN CORPUSCULAR HGB CONC 32.1 G/dL (31.0-37.0); MEAN CORPUSCULAR VOLUME 76 fL (80-100); MONOCYTES # (AUTO) 0.6 K/uL (0.1-1.0); MONOCYTES % (AUTO) 7.1 % (2.0-9.0); NEUTROPHILS # (AUTO) 7.1 K/uL (1.8-7.7); NEUTROPHILS % (AUTO) 83.6 % (40.0-70.0); RED BLOOD CELL COUNT(AUTO) 4.85 MIL/uL (4.50-5.90); RED CELL DISTRIBUTION WIDTH 20.1 % (11.5-14.5)
[2018-01-05 12:28] LABS: HEMOGLOBIN A1C 5.3 % (4.5-6.2)
[2018-01-05 12:36] LABS: PLATELET COUNT (AUTO) 94 K/uL (150-450)
[2018-01-05 12:42] LABS: PROSTATE SPECIFIC ANTIGEN 3.42 ng/mL (0.00-4.00)
[2018-01-05 13:28] LABS: ALANINE AMINOTRANSFERASE 27 U/L (12-78); ALBUMIN 3.5 g/dL (3.4-5.0); ALKALINE PHOSPHATASE 137 U/L (46-116); ANION GAP 11 mmol/L (8-16); ASPARTATE AMINOTRANSFERASE 88 U/L (15-37); BILIRUBIN,TOTAL 2.8 mg/dL (0.1-1.0); CALCIUM, TOTAL 8.6 mg/dL (8.8-10.5); CARBON DIOXIDE 27 mmol/L (22-29); CHLORIDE 98 mmol/L (98-107); CHOLESTEROL 144 mg/dL (131-200); CREATININE 0.96 mg/dL (0.60-1.30); GLOMERULAR FILTR. RATE CALC > 60 mL/min (>60); GLUCOSE,RANDOM 112 mg/dL (70-110); HDL CHOLESTEROL 48 mg/dL (40-60); SODIUM SERUM 136 mmol/L (136-145); TOTAL PROTEIN, SERUM 9.2 g/dL (6.4-8.2); TRIGLYCERIDES 137 mg/dL (15-150); UREA NITROGEN, BLOOD 11 mg/dL (7-18)
[2018-01-05 13:29] LABS: LDL CHOL (CALC.) 69 mg/dL (0-130)
[2018-01-05 13:47] LABS: APPEARANCE,URINE CLEAR (CLEAR); BILIRUBIN,URINE NEGATIVE (NEGATIVE); GLUCOSE, URINE (UA) NEGATIVE (NEGATIVE); KETONES,URINE TRACE mg/dL (NEGATIVE); LEUKOCYTE ESTERASE ,URINE TRACE (NEGATIVE); NITRATE,URINE NEGATIVE (NEGATIVE); OCCULT BLOOD,URINE NEGATIVE (NEGATIVE); PROTEIN,URINE TRACE (NEGATIVE)
[2018-01-05 14:35] LABS: BACTERIA,URINE None Seen /HPF (None Seen); RBC,URINE None Seen /HPF (0-2); SQUAMOUS EPITHELIAL CELL,UR Few /LPF (None Seen); WBC,URINE 0-2 /HPF (0-5)
== END | disposition home or self-care (01) ==
LOC: MSR 08:38
PROVIDERS: ATTEND Hospitalist
DX: S52.511D Displaced fracture of right radial styloid process, subsequent encounter for closed fracture with routine healing (principal); M19.031 Primary osteoarthritis, right wrist; K74.60 Unspecified cirrhosis of liver; I10 Essential (primary) hypertension; E78.5 Hyperlipidemia, unspecified; R79.89 Other specified abnormal findings of blood chemistry; X58.XXXD Exposure to other specified factors, subsequent encounter
CPT/HCPCS: 82271; 82607; 83036; 84153; 84443

== ENCOUNTER → 2018-01-11 | Outpatient (CLI) | payer MEDICARE, OTHER ==
[~2018-01-11] VITALS: Ht 185.4 cm; Wt 137.0 kg
[~2018-01-11] MED LIST changes: +AMIO200T44 PO; +ASPI81 PO; +FURO40 PO; +METO25 PO; +SPIR50 PO
[2018-01-11 10:36] VITALS: BP 114/65
== END | disposition home or self-care (01) ==
LOC: SRCNTR 10:25
PROVIDERS: ATTEND Hospitalist
DX: I87.8 Other specified disorders of veins (principal); K74.60 Unspecified cirrhosis of liver; E66.9 Obesity, unspecified; N18.9 Chronic kidney disease, unspecified; D64.9 Anemia, unspecified; F10.10 Alcohol abuse, uncomplicated; R60.1 Generalized edema
CPT/HCPCS: G0463

== ENCOUNTER → 2018-03-04 | Outpatient (CLI) | payer MEDICARE ==
[~2018-03-04] VITALS: Ht 185.4 cm; Wt 136.5 kg
[2018-03-04 09:02] VITALS: BP 107/60
== END | disposition home or self-care (01) ==
LOC: SRCNTR 09:01
PROVIDERS: ATTEND Hospitalist
DX: I87.8 Other specified disorders of veins (principal); K74.60 Unspecified cirrhosis of liver; D64.9 Anemia, unspecified; I10 Essential (primary) hypertension; E78.5 Hyperlipidemia, unspecified; E66.9 Obesity, unspecified; R60.1 Generalized edema; F10.10 Alcohol abuse, uncomplicated
CPT/HCPCS: G0463

== ENCOUNTER 2018-06-27 02:04 | Emergency (ER) | payer MEDICAID, MEDICARE ==
[~2018-06-27] VITALS: Ht 185.4 cm; Wt 144.1 kg
[~2018-06-27 02:04] MED LIST changes: -BENZ0.5T44 PO; -CARV3 PO; -DSS100 PO
[2018-06-27] MEDS ORDERED: ACETAMINOPHEN 500 MG TABLET PO ONE (03:30)
[2018-06-27] MEDS ORDERED: KETOROLAC TROMETHAMINE 60 MG/2 ML VIAL IM ONE (03:30)
[2018-06-27 03:54] LABS: GLUCOSE,POINT OF CARE 114 MG/DL (70-110)
[2018-06-27 05:17] VITALS: BP 133/78
== END 2018-06-27 05:21 | disposition home or self-care (01) ==
LOC: EMS 02:05
DX: S52.612A Displaced fracture of left ulna styloid process, initial encounter for closed fracture (principal); S52.352A Displaced comminuted fracture of shaft of radius, left arm, initial encounter for closed fracture; S62.112A Displaced fracture of triquetrum [cuneiform] bone, left wrist, initial encounter for closed fracture; F32.9 Major depressive disorder, single episode, unspecified; F20.9 Schizophrenia, unspecified; Z88.2 Allergy status to sulfonamides; Z79.82 Long term (current) use of aspirin; Z91.040 Latex allergy status; Z79.899 Other long term (current) drug therapy; W01.0XXA Fall on same level from slipping, tripping and stumbling without subsequent striking against object, initial encounter; Y93.89 Activity, other specified; Y92.89 Other specified places as the place of occurrence of the external cause; Y99.8 Other external cause status
CPT/HCPCS: 73110; 82962; 96372; 99284; J1885

== ENCOUNTER → 2018-07-15 | Outpatient (CLI) | payer MEDICARE ==
[2018-07-15 11:29] VITALS: BP 120/64
== END | disposition home or self-care (01) ==
LOC: SRCNTR 10:49
PROVIDERS: ATTEND Hospitalist
DX: I51.7 Cardiomegaly (principal); I45.10 Unspecified right bundle-branch block; I48.91 Unspecified atrial fibrillation

== ENCOUNTER 2020-02-17 21:20 | Emergency (ER) | payer MEDICARE ==
[~2020-02-17] VITALS: Ht 185.4 cm; Wt 140.9 kg
[~2020-02-17 21:20] MED LIST changes: -AMIO200T44 PO; +AMIO200T6 PO; +ASPI-728 PO; -ASPI81 PO; +FOLI-130 PO; -FOLI1 PO
[2020-02-17] MEDS ORDERED: ATOR20TA86 PO (22:37)
[2020-02-17] MEDS ORDERED: IBUP-2070 PO (22:37)
[2020-02-17] MEDS ORDERED: FOLI-130 PO (22:37)
[2020-02-17] MEDS ORDERED: DOXY-354 PO (22:37)
[2020-02-17] MEDS ORDERED: AMOX500C2 PO (22:37)
[2020-02-17] MEDS ORDERED: LACT30L PO (22:37)
[2020-02-18] MEDS ORDERED: ACETAMINOPHEN 500 MG TABLET PO ONE (02:00)
[2020-02-18 02:48] VITALS: BP 137/81
== END 2020-02-18 02:57 | disposition home or self-care (01) ==
LOC: EMS 21:20
DX: S50.02XA Contusion of left elbow, initial encounter (principal); S80.212A Abrasion, left knee, initial encounter; F10.10 Alcohol abuse, uncomplicated; F32.9 Major depressive disorder, single episode, unspecified; F20.9 Schizophrenia, unspecified; Z88.1 Allergy status to other antibiotic agents; Z79.899 Other long term (current) drug therapy; W19.XXXA Unspecified fall, initial encounter; Y93.89 Activity, other specified; Y92.89 Other specified places as the place of occurrence of the external cause; Y99.8 Other external cause status

== ENCOUNTER 2020-05-19 19:41 | Emergency (ER) | payer MEDICARE ==
[~2020-05-19] VITALS: Ht 185.4 cm; Wt 145.4 kg
[~2020-05-19 19:41] MED LIST changes: -AMIO200T6 PO; +AMOX500C2 PO; -ASCO500 PO; -ASPI-728 PO; +ATOR20TA86 PO; +DOXY-354 PO; +IBUP-2070 PO; +LACT30L PO; -TRAM50TA4 PO
[2020-05-19 21:47] LABS: GLUCOSE,POINT OF CARE 98 MG/DL (70-110)
[2020-05-19 23:18] LABS: BASOPHILS % (AUTO) 2.8 % (0.0-2.0); EOSINOPHILS % (AUTO) 3.9 % (1.0-6.0); HEMATOCRIT 31.1 % (41-53); LYMPHOCYTES # (AUTO) 1.2 K/uL (1.0-4.8); LYMPHOCYTES % (AUTO) 28.5 % (22.0-44.0); MEAN CORPUSCULAR HEMOGLOBIN 26.3 pg (26.0-34.0); MEAN CORPUSCULAR VOLUME 82 fL (80-100); MONOCYTES # (AUTO) 0.3 K/uL (0.1-1.0); MONOCYTES % (AUTO) 8.5 % (2.0-9.0); NEUTROPHILS # (AUTO) 2.3 K/uL (1.8-7.7); NEUTROPHILS % (AUTO) 56.3 % (40.0-70.0); PLATELET COUNT (AUTO) 146 K/uL (150-450); RED BLOOD CELL COUNT(AUTO) 3.79 MIL/uL (4.50-5.90); RED CELL DISTRIBUTION WIDTH 19.5 % (11.5-14.5)
[2020-05-19 23:30] LABS: ANION GAP 7 mmol/L (8-16); CALCIUM, TOTAL 8.2 mg/dL (8.8-10.5); CARBON DIOXIDE 25 mmol/L (22-29); CHLORIDE 109 mmol/L (98-107); CREATININE 0.82 mg/dL (0.60-1.30); GLOMERULAR FILTR. RATE CALC > 60 mL/min (>60); GLUCOSE,RANDOM 98 mg/dL (70-110); POTASSIUM 3.8 mmol/L (3.5-5.1); SODIUM SERUM 141 mmol/L (136-145); UREA NITROGEN, BLOOD 8 mg/dL (7-18)
[2020-05-19 23:37] LABS: ALANINE AMINOTRANSFERASE 20 U/L (12-78); ALBUMIN 2.6 g/dL (3.4-5.0); ALKALINE PHOSPHATASE 84 U/L (46-116); ASPARTATE AMINOTRANSFERASE 43 U/L (15-37); BILIRUBIN,TOTAL 0.8 mg/dL (0.1-1.0); TOTAL PROTEIN, SERUM 8.1 g/dL (6.4-8.2)
[2020-05-20 01:15] LABS: AMPHET/METH SCREEN,URINE NEGATIVE (NEGATIVE); BARBITURATE SCREEN, URINE NEGATIVE (NEGATIVE); BENZODIAZEPINES SCREEN,URINE NEGATIVE (NEGATIVE); CANNABINOID SCREEN,URINE NEGATIVE (NEGATIVE); COCAINE SCREEN,URINE NEGATIVE (NEGATIVE); METHADONE SCREEN, URINE NEGATIVE (NEGATIVE); OPIATE SCREEN,URINE NEGATIVE (NEGATIVE); PHENCYCLIDINE SCREEN,URINE NEGATIVE (NEGATIVE)
[2020-05-20 02:45] VITALS: BP 103/48
== END 2020-05-20 03:40 | disposition home or self-care (01) ==
LOC: EMS 19:48
DX: S09.90XA Unspecified injury of head, initial encounter (principal); F10.129 Alcohol abuse with intoxication, unspecified; F32.9 Major depressive disorder, single episode, unspecified; F20.9 Schizophrenia, unspecified; Z88.1 Allergy status to other antibiotic agents; Z79.899 Other long term (current) drug therapy; W19.XXXA Unspecified fall, initial encounter; Y93.89 Activity, other specified; Y92.89 Other specified places as the place of occurrence of the external cause; Y99.8 Other external cause status; Y90.8 Blood alcohol level of 240 mg/100 ml or more
CPT/HCPCS: 36415; 70450; 72125; 80053; 80307; 82962; 85025; 99284; G0480

== ENCOUNTER 2020-07-13 12:23 | Emergency (ER) | payer MEDICARE ==
[~2020-07-13] VITALS: Ht 185.4 cm; Wt 148.4 kg
[2020-07-13] MEDS ORDERED: KETOROLAC TROMETHAMINE 10 MG TABLET PO ONE (13:45)
[2020-07-13 15:10] VITALS: BP 126/61
== END 2020-07-13 15:39 | disposition home or self-care (01) ==
LOC: EMS 12:23
DX: M25.461 Effusion, right knee (principal); F32.9 Major depressive disorder, single episode, unspecified; F20.9 Schizophrenia, unspecified; Z79.899 Other long term (current) drug therapy; Z88.1 Allergy status to other antibiotic agents